=== PATIENT | male | born 1995 | race Two or more races ===

== ENCOUNTER 2024-11-04 07:48 | Inpatient (IN) | payer MEDICAID ==
[~2024-11-04] VITALS: Ht 180.3 cm; Wt 131.1 kg
[2024-11-04 07:55] VITALS: RESP 17
[2024-11-04 08:18] LABS: Urine Bacteria None Seen /hpf (None Seen)
[2024-11-04 08:41] LABS: Urine Blood Negative /uL (Negative); Urine Clarity Clear (Clear); Urine Color Yellow (Yellow); Urine Mucus FEW (None Seen); Urine Protein, UAD TRACE (Negative); Urine Specific Gravity 1.024 (1.001-1.035); Urine Urobilinogen Normal (Negative); Urine WBC 1 /hpf (0 - 3)
--- NOTE | 2024-11-04 08:56 | ED.PDOC ---
HPI (NEURO) HPI Comments 29 Y M, presents to the ED with CC of left sided weakness. Patient states that he woke up this morning to brush his teeth and when he went to spit the water would only come out of one side. Patient relays that he has had a left sided eye twitch since Sunday which progressed this morning to to left sided numbness with associated facial tingling. Patient denies tobacco usage, ETOH, or illicit drugs. Patient denies any headache, N/V/D, or body aches. Chief Complaint: Left Sided Weakness Time Seen by MD: 08:20 Primary Care Provider: NONE Reviewed Notes: Nurses Notes, Medications, Allergies Information Source: Patient Mode of Arrival: Ambulatory Severity: Moderate Headache Severity: None Timing: Days Duration: Since onset Prehospital treatment: None Weakness Location: (L) Sided, Facial Numbness Location: (L) Sided, Facial Symptoms: None History of: None Modifying factors: Nothing Associated Signs and Symptoms: None Past Medical History PAST MEDICAL HISTORY: Denies Surgical History: Denies all surgeries Family History Family History: Unknown Social History Smoker: Non-Smoker Alcohol: Denies ETOH Use Drugs: Denies Drug Use Lives In: Home Constitutional: denies: chills, diaphoresis, fatigue, fever, malaise, sweats, weakness, others EENTM: denies: blurred vision, double vision, ear bleeding, ear discharge, ear drainage, ear pain, ear ringing, eye pain, eye redness, hearing loss, mouth pain, mouth swelling, nasal discharge, nose bleeding, nose congestion, nose pain, photophobia, tearing, throat pain, throat swelling, voice changes, others Respiratory: denies: cough, hemoptysis, orthopnea, SOB at rest, shortness of breath, SOB with excertion, stridor, wheezing, others Cardiovascular: denies: chest pain, dizzy spells, diaphoresis, Dyspnea on exertion, edema, irregular heart beat, left arm pain, lightheadedness, palpitations, PND, syncope, others Gastrointestinal: denies: abdomen distended, abdominal pain, blood streaked bowels, constipated, diarrhea, dysphagia, difficulty swallowing, hematemesis, melena, nausea, poor appetite, poor fluid intake, rectal bleeding, rectal pain, vomiting, others Genitourinary: denies: burning, dysuria, flank pain, frequency, hematuria, incontinence, penile discharge, penile sore, pain, testicle pain, testicle swelling, urgency, others Neurological: reports: left sided numbness, left sided weakness, numbness, tingling, others (mild left sided facial droop); denies: dizziness, fainting, headache, paresthesia, pre-existing deficit, right sided numbness, right sided weakness, seizure, speech problems, tremors, weakness Musculoskeletal: denies: back pain, gout, joint pain, joint swelling, muscle pain, muscle stiffness, neck pain, others Integumetry: denies: bruises, change in color, change in hair/nails, dryness, laceration, lesions, lumps, rash, wounds, others Allergic/Immunocompromised: denies: Difficulty Healing, Frequent Infections, Hives, Itching, others Hematologic/Lymphatic: denies: anemia, blood clots, easy bleeding, easy bruising, swollen glands, others Endocrine: denies: excessive hunger, excessive sweating, excessive thirst, excessive urination, flushing, intolerance to cold, intolerance to heat, unexplained weight gain, unexplained weight loss, others Psychiatric: denies: anxiety, bipolar disorder, depression, hopeless, panic disorder, schizophrenia, sleepless, suicidal, others All Other Systems: Reviewed and Negative Physical Exam General Appearance: No Apparent Distress, Normal HEENT: Normal ENT Inspection, Pharynx Normal, TMs Normal Neck: Full Range of Motion, Non-Tender, Normal, Normal Inspection Respiratory: Chest Non-Tender, Lungs Clear, No Accessory Muscle Use, No Respiratory Distress, Normal Breath Sounds Cardiovascular: No Edema, No JVD, No Murmur, No Gallop, Normal Peripheral Pulses, Regular Rate/Rhythm Breast Exam: Deferred Gastrointestinal: No Organomegaly, Non Tender, No Pulsatile Mass, Normal Bowel Sounds, Soft Genitalia: Deferred Pelvic: Deferred Rectal: Deferred Extremities: No calf tenderness, Normal capillary refill, Normal inspection, Normal range of motion, Non-tender, No pedal edema Musculoskeletal : Apperance: Normal Neurologic: Alert, mental health worker II-XII nml as Tested, No Motor Deficits, Normal Affect, Normal Mood, No Sensory Deficits Cerebellar Function: Normal Reflexes: Normal Skin: Dry, Normal Color, Warm Lymphatic: No Adenopathy Was a procedure done? Was a procedure done?: No Differential Diagnosis (SZ) Seizure: Syncope CVA: Hooper's Palsy X-Ray, Labs, Meds, VS Vital Signs Date Time Temp Pulse Resp B/P (MAP) Pulse Ox O2 Delivery O2 Flow Rate FiO2 11/04/24 10:30 97.7 80 16 122/80 (94) 99 97.7 11/04/24 08:40 98.3 85 16 132/89 (103) 96 98.3 11/04/24 07:59 98.0 82 18 145/91 (109) 98 11/04/24 07:55 17 Room Air* 0 21 Lab Test 11/04/24 10:00 11/04/24 09:10 11/04/24 08:08 11/04/24 08:07 Range/Units Troponin I High Sensitivity < 3 L < 3 L </=54 ng/L White Blood Count 7.7 4.4-10.8 10^3/uL Red Blood Count 5.93 H 4.5-5.90 10^6/uL Hemoglobin 18.0 H 13.5-17.5 g/dL Hematocrit 52.3 41.0-53.0 % Mean Corpuscular Volume 88.2 80.0-100.0 fL Mean Corpuscular Hemoglobin 30.3 28.0-32.0 pg Mean Corpuscular Hemoglobin Concent 34.3 32.0-36.0 g/dL Red Cell Distribution Width 13.1 11.8-14.3 % Platelet Count 153 140-450 10^3/uL Mean Platelet Volume 10.7 6.9-10.8 fL Neutrophils (%) (Auto) 62.8 37.0-80.0 % Lymphocytes (%) (Auto) 24.5 10.0-50.0 % Monocytes (%) (Auto) 8.5 0.0-12.0 % Eosinophils (%) (Auto) 3.4 0.0-7.0 % Basophils (%) (Auto) 0.8 0.0-2.0 % Neutrophils # (Auto) 4.8 1.6-8.6 10 ^3/uL Lymphocytes # (Auto) 1.9 0.4-5.4 10 ^3/uL Monocytes # (Auto) 0.7 0-1.3 10 ^3/uL Eosinophils # (Auto) 0.3 0-0.8 10 ^3/uL Basophils # (Auto) 0.1 0-0.2 10 ^3/uL Nucleated Red Blood Cells 0.3 % Sodium Level 140 136-145 mmol/L Potassium Level 4.2 3.5-5.1 mmol/L Chloride Level 104 98-107 mmol/L Carbon Dioxide Level 30 20-31 mmol/L Anion Gap 6 5-15 Blood Urea Nitrogen 9 9-23 mg/dL Creatinine 0.84 0.700-1.30 mg/dL Glomerular Filtration Rate Calc 121 >90 mL/min BUN/Creatinine Ratio 10.7 10.0-20.0 Serum Glucose 226 H 74-106 mg/dL Calcium Level 9.9 8.7-10.4 mg/dL POC Glucose 212 H 70-106 mg/dl Urine Color Yellow Yellow Urine Clarity Clear Clear Urine pH 6.0 5.0-9.0 Urine Specific [place] 1.024 1.001-1.035 Urine Protein Trace H Negative Urine Ketones Negative Negative Urine Blood Negative Negative /uL Urine Nitrite Negative Negative Urine Bilirubin Negative Negative Urine Urobilinogen Normal Negative mg/dL Urine Leukocyte Esterase Negative Negative /uL Urine RBC <1 0 - 3 /hpf Urine WBC 1 0 - 3 /hpf Urine Squamous Epithelial Cells None seen <5 /hpf Urine Bacteria None seen None Seen /hpf Urine Mucus Few None Seen Urine Glucose 4+ H Normal mg/dL [place] [address] Ph: [phone] DIAGNOSTIC IMAGING Diagnostic Imaging Report : [id number] Signed PATIENT: LORETO SKYACCT: [id number] UNIT: [id number] : 1995 LOC: ER ROOM / BED: / AGE / SEX: 29 / M ADM STATUS: REG ER SERVICE 0853 ORDERING PHYSICIAN: DELVIS JOSEPH MD PROCEDURE(s): HWOCT - HEAD WITHOUT CONTRAST REASON: facial droop ORDER NUMBER(s): [id number], ACCESSION NUMBER(s): [id number] EXAM: CT HEAD WITHOUT CONTRAST INDICATION: Facial droop TECHNIQUE: CT of the head without intravenous contrast. Coronal and sagittal reformatted images are submitted. Radiation Dose : 1. Head: CT Dose: CTDI volume is 67.28 mGy. Dose-length product is 1325.6 mGy*cm The dose indicators for CT are the volume Computed Tomography (CT) Dose Index (CTDIvol) and the Dose Length Product (DLP), and are measured in units of mGy and mGy-cm, respectively. These indicators are not patient dose, but values generated from the CT scanner acquisition factors. The report includes radiation exposure data for exposures received during this examination. All CT scans at this medical facility are performed using dose modulation techniques as appropriate to a performed exam including the following: Automated exposure control was utilized; adjustment of the MA and/or KV according to patient size; and use of iterative reconstruction technique. COMPARISON: None FINDINGS: There is no evidence of acute intracranial hemorrhage, extra-axial collection, mass effect, midline shift, herniation or hydrocephalus. The ventricles, sulci and cisterns are age appropriate. The snow-white differentiation is intact. Mastoid air cells are clear. Opacification of the bilateral ethmoid air cells. Mucosal thickening in the bilateral maxillary sinuses. No depressed calvarial fracture. The surrounding soft tissues are unremarkable. IMPRESSION: 1. No acute intracranial abnormality. 2. Paranasal sinus disease. ATED BY: EMMA REGALADO MD DICTATED DATE/TIME: 11/04/24922 SIGNED BY: EMMA REGALADO MD SIGNED DATE/TIME: 11/04/24922 CC: [place] [address] Ph: [phone] DIAGNOSTIC IMAGING Diagnostic Imaging Report : [id number] Signed PATIENT: CARMELITA SKYT: [id number] UNIT: [id number] : 1995 LOC: ER ROOM / BED: / AGE / SEX: 29 / M ADM STATUS: REG ER SERVICE 2 ORDERING PHYSICIAN: DELVIS JOSEPH MD PROCEDURE(s): CXR2 - CHEST TWO VIEWS ROUTINE REASON: facial droop ORDER NUMBER(s): [id number], ACCESSION NUMBER(s): [id number] EXAM: XY CHEST TWO VIEWS ROUTINE CLINICAL HISTORY: facial droop COMPARISON: None TECHNIQUE: Frontal and lateral view of the chest was obtained FINDINGS: Lines and Tubes: None Lungs: No focal consolidation. Pleura: No effusion. No pneumothorax. Cardiomediastinal contours: Unremarkable Bones: No acute osseous abnormality. IMPRESSION: No acute cardiopulmonary disease. ATED BY: DONELL PERSAUD MD DICTATED DATE/TIME: 11/04/24925 SIGNED BY: DONELL PERSAUD MD SIGNED DATE/TIME: 11/04/24925 CC: Time of 1ST Reevaluation: 08:50 Reevaluation 1ST: Unchanged Patient Education/Counseling: Diagnosis, Treatment Family Education/Counseling: No Family Present Additional Information The following tests were ordered, and results were reviewed by me: BMP, CBC, TROPONIN X3, UA I reviewed and agreed with the following test results read by other providers: CXR, CT I discussed treatment and results with medical personnel and consultants. Departure 1 Departure Time of Disposition: 11:03 (Patient with mild left-sided facial droop. Patient has new onset hyperglycemia likely new onset diabetes. We will admit patient for further workup) Impression: Primary Impression: Hyperglycemia Additional Impression: Facial droop Disposition: ADMITTED INPATIENT Admit to: Med Surg Condition: Serious Critical Care Note Critical Care Time?: Yes Critical care comment: Facial droop Authorized and Performed by: Delvis Joseph MD Total critical care time: Approximately 33 minutes Due to a high probability of clinically significant, life threatening deterioration, the patient required my highest level of preparedness to intervene emergently and I personally spent this critical care time directly and personally managing the patient. This critical care time included obtaining a history; examining the patient; pulse oximetry; ordering and review of studies; arranging urgent treatment with development of a management plan; evaluation of patient's response to treatment; frequent reassessment; and, discussions with other providers. This critical care time was performed to assess and manage the high probability of imminent, life-threatening deterioration that could result in multi-organ failure. It was exclusive of separately billable procedures and treating other patients and teaching time. Please see my other sections and the rest of the note for further information on patient assessment and treatment. Stability Stability form required: No Heart Score Heart Score: Heart Score Response (Comments) Value History N/A 0 EKG N/A 0 Age N/A 0 Risk Factors N/A 0 Troponin N/A 0 Total 0 I personally scribed for DELVIS JOSEPH MD ([email or web address]) on 11/04/24 at 08:56. Electronically submitted by Khalida Marcelo ([email or web address]). I personally scribed for DELVIS JOSEPH MD ([facility] on 11/04/24 at 09:00. Electronically submitted by Khalida Marcelo ([email or web address]). I personally scribed for DELVIS JOSEPH MD ([email or web address]) on 11/04/24 at 09:41. Electronically submitted by Khalida Marcelo ([email or web address]). I personally scribed for DELVIS JOSEPH MD ([email or web address]) on 11/04/24 at 09:42. Electronically submitted by Khalida Marcelo ([email or web address]). I personally scribed for DELVIS JOSEPH MD ([email or web address]) on 11/04/24 at 09:43. Electronically submitted by Khalida Marcelo ([email or web address]). DELVIS JOSEPH MD Nov 04, 2024 08:56
[2024-11-04 09:18] LABS: Basophils # (auto) 0.1 10 ^3/uL (0-0.2); Basophils % (auto) 0.8 % (0.0-2.0); Eosinophils # (auto) 0.3 10 ^3/uL (0-0.8); Eosinophils % (auto) 3.4 % (0.0-7.0); Hematocrit 52.3 % (41.0-53.0); Lymphocytes # (auto) 1.9 10 ^3/uL (0.4-5.4); Lymphocytes % (auto) 24.5 % (10.0-50.0); Mean Corpuscular Hemoglobin 30.3 pg (28.0-32.0); Mean Corpuscular Hgb Conc. 34.3 g/dL (32.0-36.0); Mean Corpuscular Volume 88.2 fL (80.0-100.0); Monocytes # (auto) 0.7 10 ^3/uL (0-1.3); Monocytes % (auto) 8.5 % (0.0-12.0); Neutrophils # (auto) 4.8 10 ^3/uL (1.6-8.6); Neutrophils % (auto) 62.8 % (37.0-80.0); Nucleated Red Blood Cells % 0.3 %; Platelet Count (auto) 153 10^3/uL (140-450); Red Blood Cells 5.93 10^6/uL (4.5-5.90); Red Cell Distribution Width 13.1 % (11.8-14.3); White Blood Cell 7.7 10^3/uL (4.4-10.8)
[2024-11-04 09:25] LABS: Chloride 104 mmol/L (98-107); Potassium 4.2 mmol/L (3.5-5.1); Sodium 140 mmol/L (136-145)
--- NOTE | 2024-11-04 09:25 | DVH ---
EXAM: CT HEAD WITHOUT CONTRAST INDICATION: Facial droop TECHNIQUE: CT of the head without intravenous contrast. Coronal and sagittal reformatted images are submitted. Radiation Dose : 1. Head: CT Dose: CTDI volume is 67.28 mGy. Dose-length product is 1325.6 mGy*cm The dose indicators for CT are the volume Computed Tomography (CT) Dose Index (CTDIvol) and the Dose Length Product (DLP), and are measured in units of mGy and mGy-cm, respectively. These indicators are not patient dose, but values generated from the CT scanner acquisition factors. The report includes radiation exposure data for exposures received during this examination. All CT scans at this medical facility are performed using dose modulation techniques as appropriate to a performed exam including the following: Automated exposure control was utilized; adjustment of the MA and/or KV according to patient size; and use of iterative reconstruction technique. COMPARISON: None FINDINGS: There is no evidence of acute intracranial hemorrhage, extra-axial collection, mass effect, midline s hift, herniation or hydrocephalus. The ventricles, sulci and cisterns are age appropriate. The snow-white differentiation is intact. Mastoid air cells are clear. Opacification of the bilateral ethmoid air cells. Mucosal thickening in the bilateral maxillary sinuses. No depressed calvarial fracture. The surrounding soft tissues are unremarkable. IMPRESSION: 1. No acute intracranial abnormality. 2. Paranasal sinus disease.
[2024-11-04 09:26] LABS: Anion Gap 6 (5-15); Calcium 9.9 mg/dL (8.7-10.4); Carbon Dioxide 30 mmol/L (20-31)
--- NOTE | 2024-11-04 09:27 | DVH ---
EXAM: XY CHEST TWO VIEWS ROUTINE CLINICAL HISTORY: facial droop COMPARISON: None TECHNIQUE: Frontal and lateral view of the chest was obtained FINDINGS: Lines and Tubes: None Lungs: No focal consolidation. Pleura: No effusion. No pneumothorax. Cardiomediastinal contours: Unremarkable Bones: No acute osseous abnormality. IMPRESSION: No acute cardiopulmonary disease.
[2024-11-04 09:31] LABS: BUN/Creatinine Ratio 10.7 (10.0-20.0); Blood Urea Nitrogen 9 mg/dL (9-23)
[2024-11-04 09:32] LABS: Glucose 226 mg/dL (74-106)
[2024-11-04] MEDS ORDERED: DOCUSATE SOD 100 MG CAP PO PRN ×2 (12:30→12:45)
[2024-11-04] MEDS ORDERED: ONDANSETRON HCL 4 MG/2 ML VIAL IV PRN ×2 (12:30→12:45)
[2024-11-04] MEDS ORDERED: NITROGLYCERIN 0.4 MG SL TAB SL PRN ×2 (12:30→12:45)
[2024-11-04] MEDS ORDERED: HYDROcodone-ACET 5/325MG TAB PO PRN ×2 (12:30→12:45)
[2024-11-04] MEDS ORDERED: MORPHINE SULFATE INJ 2 MG/ml SYRG IV PRN ×2 (12:30→12:45)
[2024-11-04] MEDS ORDERED: ACETAMINOPHEN 325 MG TAB PO PRN (12:30)
--- NOTE | 2024-11-04 12:47 | DVHHP2 ---
History of Present Illness Reason for Visit: left facial droop History of Present Illness Aditya Burgess is a 29-year-old male with no significant past medical history who came in with complaints of left sided facial numbness. Patient states that on Sunday he noticed the left side of his face twitching and tingling. Then this morning while he was brushing his teeth the left side of his face went numb, he was drooling, and his left hand went numb. On assessment the left side of his face is tingling, his left hand is still numb and he has a left sided facial droop. Past Surgical History: None Family History: None Smoke: No ALCOHOL: rare Drugs: None Lives: with Family Domestic Violence: Neg Review of Systems Constitutional: No: Fever, Chills, Sweats, Weakness, Malaise, Other Eyes: No: Pain, Vision change, Conjunctivae inflammation, Eyelid inflammation, Other, Redness ENT: No: Ear pain, Ear discharge, Nose pain, Nose discharge, Nose congestion, Mouth pain, Mouth swelling, Throat pain, Throat swelling, Other Respiratory: No: Cough, Dry, Shortness of breath, SOB with excertion, Wheezing, Hemoptysis, Pleuritic Pain, Sputum, Wheezing, Other Cardiovascular: No: Chest Pain, Palpitations, Orthopnea, Paroxysmal Noc. Dyspnea, Edema, Lt Headedness, Other Gastrointestinal: No: Nausea, Vomiting, Abdominal Pain, Diarrhea, Constipation, Melena, Hematochezia, Other Genitourinary: No Dysuria, No Frequency, No Incontinence, No Hematuria, No Retention, No Other Musculoskeletal: No: other, neck pain, shoulder pain, arm pain, back pain, hand pain, leg pain, foot pain Skin: No: Rash, Lesions, Jaundice, Bruising, Other Neurological: Numbness (left hand and left face), Other (left facial droop); No: Weakness, Incoordination, Change in speech, Confusion, Seizures Allergies: Coded Allergies: NO KNOWN ALLERGIES (Unverified , 11/04/24) Exam Vital Signs Vital Signs Date Time Temp Pulse Resp B/P (MAP) Pulse Ox O2 Delivery O2 Flow Rate FiO2 11/04/24 10:30 97.7 80 16 122/80 (94) 99 97.7 11/04/24 07:55 Room Air* 0 21 General Appearance: Alert, Oriented X3, Cooperative, moderate distress HEENT: Atraumatic, PERRLA Respiratory: Clear to auscultation, Normal air movement Cardiovascular: Regular rate, Normal S1, Normal S2, No murmurs Abdominal: Normal bowel sounds, Soft, No tenderness Extremities: No clubbing, No cyanosis, No edema, Normal pulses Skin: No rashes, No breakdown Neuro: Normal gait, Normal speech, Strength at 5/5 X4 ext, Other (left hand numbness, left facial droop, left face numbness/tingling) Psych/Mental Status: Mental status NL, Mood NL Labs/Xrays Labs Test 11/04/24 10:00 11/04/24 09:10 11/04/24 08:08 11/04/24 08:07 Range/Units Troponin I High Sensitivity < 3 L </=54 ng/L White Blood Count 7.7 4.4-10.8 10^3/uL Red Blood Count 5.93 H 4.5-5.90 10^6/uL Hemoglobin 18.0 H 13.5-17.5 g/dL Hematocrit 52.3 41.0-53.0 % Mean Corpuscular Volume 88.2 80.0-100.0 fL Mean Corpuscular Hemoglobin 30.3 28.0-32.0 pg Mean Corpuscular Hemoglobin Concent 34.3 32.0-36.0 g/dL Red Cell Distribution Width 13.1 11.8-14.3 % Platelet Count 153 140-450 10^3/uL Mean Platelet Volume 10.7 6.9-10.8 fL Neutrophils (%) (Auto) 62.8 37.0-80.0 % Lymphocytes (%) (Auto) 24.5 10.0-50.0 % Monocytes (%) (Auto) 8.5 0.0-12.0 % Eosinophils (%) (Auto) 3.4 0.0-7.0 % Basophils (%) (Auto) 0.8 0.0-2.0 % Neutrophils # (Auto) 4.8 1.6-8.6 10 ^3/uL Lymphocytes # (Auto) 1.9 0.4-5.4 10 ^3/uL Monocytes # (Auto) 0.7 0-1.3 10 ^3/uL Eosinophils # (Auto) 0.3 0-0.8 10 ^3/uL Basophils # (Auto) 0.1 0-0.2 10 ^3/uL Nucleated Red Blood Cells 0.3 % Sodium Level 140 136-145 mmol/L Potassium Level 4.2 3.5-5.1 mmol/L Chloride Level 104 98-107 mmol/L Carbon Dioxide Level 30 20-31 mmol/L Anion Gap 6 5-15 Blood Urea Nitrogen 9 9-23 mg/dL Creatinine 0.84 0.700-1.30 mg/dL Glomerular Filtration Rate Calc 121 >90 mL/min BUN/Creatinine Ratio 10.7 10.0-20.0 Serum Glucose 226 H 74-106 mg/dL Calcium Level 9.9 8.7-10.4 mg/dL POC Glucose 212 H 70-106 mg/dl Urine Color Yellow Yellow Urine Clarity Clear Clear Urine pH 6.0 5.0-9.0 Urine Specific [place] 1.024 1.001-1.035 Urine Protein Trace H Negative Urine Ketones Negative Negative Urine Blood Negative Negative /uL Urine Nitrite Negative Negative Urine Bilirubin Negative Negative Urine Urobilinogen Normal Negative mg/dL Urine Leukocyte Esterase Negative Negative /uL Urine RBC <1 0 - 3 /hpf Urine WBC 1 0 - 3 /hpf Urine Squamous Epithelial Cells None seen <5 /hpf Urine Bacteria None seen None Seen /hpf Urine Mucus Few None Seen Urine Glucose 4+ H Normal mg/dL EXAM: CT HEAD WITHOUT CONTRAST FINDINGS: There is no evidence of acute intracranial hemorrhage, extra-axial collection, m ass effect, midline shift, herniation or hydrocephalus. The ventricles, sulci and cisterns are age appropriate. The snow-white differentiation is intact. Mastoid air cells are clear. Opacification of the bilateral ethmoid air cells. Mucosal thickening in the bilateral maxillary sinuses. No depressed calvarial fracture. The surrounding soft tissues are unremarkable. IMPRESSION: 1. No acute intracranial abnormality. 2. Paranasal sinus disease. EXAM: XY CHEST TWO VIEWS ROUTINE FINDINGS: Lines and Tubes: None Lungs: No focal consolidation. Pleura: No effusion. No pneumothorax. Cardiomediastinal contours: Unremarkable Bones: No acute osseous abnormality. IMPRESSION: No acute cardiopulmonary disease. 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, Plan: Admit to Tele, Neurology consult, MRI of brain, EKG - showed SR, Consider ECHO to R/O thrombus, A1c, Plan discussed with: Patient My Orders Orders - ADRIÁN HENDERSONP Procedure Category Date Status Time Admit ADMIT 11/04/24 Transmitted 12:23 Code Status CODE 11/04/24 Transmitted 12:23 Sodium Chloride Lock PHA 11/04/24 Transmitted (Saline Lock Ns) 14:00 Hydrocodone-Acet PHA 11/04/24 Transmitted 5/325mg Tab ([place] 12:30 Ondansetron Hcl PHA 11/04/24 Transmitted (Zofran) 12:30 Docusate Sodium PHA 11/04/24 Transmitted Capsule (Colace 12:30 Complete Blood Count LAB 11/05/24 Verified 04:00 Comprehensive LAB 11/05/24 Verified Metabolic Panel 04:00 Condition: Serious ADELA 11/04/24 Transmitted 12:23 Acetaminophen Tablet [facility] 11/04/24 Transmitted (Tylenol Tablet) 12:30 Nitroglycerin PHA 11/04/24 Transmitted Sublingual (Ntrostat 12:30 Morphine Sulfate PHA 11/04/24 Transmitted Injection 12:30 Stat Ekg For Chest ADELA 11/04/24 Transmitted Pain 12:23 Notify Md Of Changes [facility] 11/04/24 Transmitted From Base 12:23 Teradata Architect For ADELA 11/04/24 Transmitted 24 Hours 12:23 Emergency Dysrhythmia [facility] 11/04/24 Transmitted Protocol 12:23 Rhythm Strips Once [facility] 11/04/24 Transmitted Every Shift 12:23 Oxygen By Nasal RT 11/04/24 Transmitted Cannula 12:23 Brain Head Wo Contrast MRI 11/04/24 Logged 12:[address] *[address] Dupont CONS 11/04/24 Transmitted Patel 12:23 Date of Service: Nov 04, 2024 Billing Provider: ADRIÁN HENDERSON Common Visit Codes: [id number] INP/OBS CARE (MOD) ADRIÁN HENDERSONP Nov 04, 2024 12:47
[2024-11-04] MEDS ORDERED: SODIUM CHLOR 0.9% PF (SALINE LOCK) 10ML VIAL/SYR IV SCH (14:00)
--- NOTE | 2024-11-04 14:41 | DVH ---
PROCEDURE: MRI BRAIN HEAD WO CONTRAST INDICATION: stroke EXAM DATE: 11/04/2024 01:52 PM COMPARISON: CT HEAD WITHOUT CONTRAST on DOS: 11/04/24 TECHNIQUE: MRI of the brain without intravenous contrast. FINDINGS: Diffusion weighted images of the brain demonstrate no evidence of acute infarction. There is no evidence of acute intracranial hemorrhage, extra-axial collection, mass effect, midline s hift, herniation or hydrocephalus. The ventricles, sulci and cisterns appear age appropriate. The signal intensities of the brain parenchyma are within normal limits. There are no signal abnormalities on the susceptibility weighted sequences. The major vascular flow voids are present. The visualized paranasal sinuses and mastoid air cells are clear. The surrounding soft tissues and o sseous structures are unremarkable. IMPRESSION: 1. No evidence of acute infarction, intracranial hemorrhage, mass effect or hydrocephalus. HS:Y
[2024-11-04 15:56] VITALS: PULSE 90; RESP 18
[2024-11-04 15:59] VITALS: BP 160/110; PULSE 90; RESP 20; TEMP 97.8; O2SAT 98
[2024-11-04] MEDS: SODIUM CHLOR 0.9% PF (SALINE LOCK) 10ML VIAL/SYR IV SCH (16:20)
[2024-11-04 16:45] VITALS: BP 144/88; PULSE 86
--- NOTE | 2024-11-04 18:17 | DVHINCON2 ---
Date of service: Nov 04, [address] Lopez Reason for Consultation Possible stroke History of Present Illness Mr. Burgess is a 29 years old left-handed gentleman with a history of obesity, the patient came to the hospital with a chief company of left facial numbness. At this time, he is alert and fully oriented, he provided the following history This morning he woke up with numbness in the left face and hand, when he brushed the teeth, water was leaking from the right (not left) mouth corner. He denies paresthesia in the other part of his body, he denies weakness in the extremities No change in hearing, taste He was never had similar problems previously He snores, his sleep is refreshing, he denies excessive daytime sleepiness or fatigue, but his has complained about breathing pauses during sleep on him Urinalysis, 11/04/2024: Unremarkable WBC/HB/PLT/MCV, 11/04/2024: 7.7/18/153/88.2 BNP, 11/04/2024: Okay HGB A1c, 11/04/2024:10.2 CT head, 11/04/2024: 1. No acute intracranial abnormality. 2. Paranasal sinus disease. MRI brain, 11/04/2024: No evidence of acute infarction, intracranial hemorrhage, mass effect or hydrocephalus Past Medical History Obesity Past Surgical History No surgeries Family History: Diabetes mellitus G8 FATHER Hypertension G8 MOTHER Family History hypertension, diabetes Social History He is not a tobacco smoker, he denies a history of alcohol or recreational substance abuse Allergies: Coded Allergies: NO KNOWN ALLERGIES (Unverified , 11/04/24) Home Meds No Active Prescriptions or Reported Meds Current Medications Current Medications Medications (Trade) Dose Ordered Sig/Nicky Route PRN Reason Start Time Stop Time Status Last Admin Sodium Chloride (Saline Lock Ns) 10 ml Q8HR IV 11/04/24 14:00 11/04/24 12:37 DC Acetaminophen/ Hydrocodone Bitart ([place] 5/325MG Tab) 1 tab Q4HP PRN PO MODERATE PAIN (4-6 PAIN SCALE) 11/04/24 12:30 11/04/24 12:37 DC Ondansetron HCl (Zofran) 4 mg Q4HP PRN IV NAUSEA / VOMITING 11/04/24 12:30 11/04/24 12:37 DC Docusate Sodium (Colace Capsule) 100 mg BIDPRN PRN PO FOR CONSTIPATION 11/04/24 12:30 11/04/24 12:37 DC Acetaminophen (Tylenol Tablet) 650 mg Q6HP PRN PO PAIN SCALE 1-3 OR TEMP>100.4 11/04/24 12:30 11/04/24 12:37 DC Nitroglycerin (Ntrostat Sublingual) 0.4 mg Q5MINP PRN SL FOR CHEST PAIN 11/04/24 12:30 11/04/24 12:37 DC Morphine Sulfate 2 mg Q30M PRN IV FOR CHEST PAIN 11/04/24 12:30 11/04/24 12:37 DC Sodium Chloride (Saline Lock Ns) 10 ml Q8HR IV 11/04/24 14:00 11/04/24 16:20 Ondansetron HCl (Zofran) 4 mg Q4HP PRN IV NAUSEA / VOMITING 11/04/24 12:45 Morphine Sulfate 2 mg Q30M PRN IV FOR CHEST PAIN 11/04/24 12:45 Acetaminophen/ Hydrocodone Bitart ([place] 5/325MG Tab) 1 tab Q4HP PRN PO MODERATE PAIN (4-6 PAIN SCALE) 11/04/24 12:45 Docusate Sodium (Colace Capsule) 100 mg BIDPRN PRN PO FOR CONSTIPATION 11/04/24 12:45 Acetaminophen (Tylenol Tablet) 650 mg Q6HP PRN PO PAIN SCALE 1-3 OR TEMP>100.4 11/04/24 12:45 Nitroglycerin (Ntrostat Sublingual) 0.4 mg Q5MINP PRN SL FOR CHEST PAIN 11/04/24 12:45 Aspirin 81 mg DAILY PO 11/05/24 10:00 Review of Systems As above, the other systems are negative Vital Signs Vital Signs Date Time Temp Pulse Resp B/P (MAP) Pulse Ox O2 Delivery O2 Flow Rate FiO2 11/04/24 16:45 86 144/88 (106) 11/04/24 15:59 97.8 20 98 97.8 11/04/24 15:56 Room Air* 0 21 Physical Exam GENERAL EXAM: General: the patient is well developed and nourished. No acute distress. HEENT: Normocephalic, neck is supple, no carotid bruits. No mass. RESPIRATORY: Normal respiratory effort with symmetrical lung expansion. Lungs clear to auscultation. CARDIOVASCULAR: Regular rate and rhythm with no murmurs. S1, S2. ABDOMEN: Soft, nontender, normal bowel sound NEUROLOGICAL: MENTAL STATUS: Awake and alert. Oriented to person, place, time and general circumstances. Able to give personal history. SPEECH, LANGUAGE, HIGHER CORTICAL FUNCTION: no aphasia or dysathria. CRANIAL NERVES: #2: Intact visual campa to confrontation. The optic discs were sharp. Retinal background was uniformly pink in appearance. There was no hemorrhages or exu dates. #3,4,6: Pupils are equal, round and reactive. EOMs full and conjugate. #5: Facial sensation intact in all three divisions bilaterally. Mandibular strength intact. Taste is normal in the tongue #7: Mild left facial weakness of lower motor neuron pattern. #8: Hearing grossly normal to voice. #9,10: Uvula and soft palate rise in the midline. Swallow and voice are normal. #11: Trapezius and sternomastoid strength intact bilaterally. #12: Tongue midline. No fasciculations or atrophy. SENSATION: Sensation to touch and pinprick is normal. MOTOR: Normal tone in the upper and lower extremity. Normal muscle bulk. No fasciculations. No abnormal movements or posturing. Muscle strength of the major groups in the upper extremities is 5/5. Muscle strength of the major groups in the lower extremities is 5/5. REFLEXES: Deep tendon reflexes normal and symmetrical. No pathological reflexes. CEREBELLAR/COORDINATION: Finger to nose and heel to gómez are normal bilaterally. GAIT/STATION: deferred. Labs/Diagnostic Data Labs Test 11/04/24 10:00 11/04/24 09:10 11/04/24 08:08 11/04/24 08:07 Range/Units Troponin I High Sensitivity < 3 L </=54 ng/L White Blood Count 7.7 4.4-10.8 10^3/uL Red Blood Count 5.93 H 4.5-5.90 10^6/uL Hemoglobin 18.0 H 13.5-17.5 g/dL Hematocrit 52.3 41.0-53.0 % Mean Corpuscular Volume 88.2 80.0-100.0 fL Mean Corpuscular Hemoglobin 30.3 28.0-32.0 pg Mean Corpuscular Hemoglobin Concent 34.3 32.0-36.0 g/dL Red Cell Distribution Width 13.1 11.8-14.3 % Platelet Count 153 140-450 10^3/uL Mean Platelet Volume 10.7 6.9-10.8 fL Neutrophils (%) (Auto) 62.8 37.0-80.0 % Lymphocytes (%) (Auto) 24.5 10.0-50.0 % Monocytes (%) (Auto) 8.5 0.0-12.0 % Eosinophils (%) (Auto) 3.4 0.0-7.0 % Basophils (%) (Auto) 0.8 0.0-2.0 % Neutrophils # (Auto) 4.8 1.6-8.6 10 ^3/uL Lymphocytes # (Auto) 1.9 0.4-5.4 10 ^3/uL Monocytes # (Auto) 0.7 0-1.3 10 ^3/uL Eosinophils # (Auto) 0.3 0-0.8 10 ^3/uL Basophils # (Auto) 0.1 0-0.2 10 ^3/uL Nucleated Red Blood Cells 0.3 % Sodium Level 140 136-145 mmol/L Potassium Level 4.2 3.5-5.1 mmol/L Chloride Level 104 98-107 mmol/L Carbon Dioxide Level 30 20-31 mmol/L Anion Gap 6 5-15 Blood Urea Nitrogen 9 9-23 mg/dL Creatinine 0.84 0.700-1.30 mg/dL Glomerular Filtration Rate Calc 121 >90 mL/min BUN/Creatinine Ratio 10.7 10.0-20.0 Serum Glucose 226 H 74-106 mg/dL Hemoglobin A1c 10.2 H <5.7 % A1C Calcium Level 9.9 8.7-10.4 mg/dL POC Glucose 212 H 70-106 mg/dl Urine Color Yellow Yellow Urine Clarity Clear Clear Urine pH 6.0 5.0-9.0 Urine Specific [place] 1.024 1.001-1.035 Urine Protein Trace H Negative Urine Ketones Negative Negative Urine Blood Negative Negative /uL Urine Nitrite Negative Negative Urine Bilirubin Negative Negative Urine Urobilinogen Normal Negative mg/dL Urine Leukocyte Esterase Negative Negative /uL Urine RBC <1 0 - 3 /hpf Urine WBC 1 0 - 3 /hpf Urine Squamous Epithelial Cells None seen <5 /hpf Urine Bacteria None seen None Seen /hpf Urine Mucus Few None Seen Urine Glucose 4+ H Normal mg/dL Assessment Left facial weakness 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
[2024-11-04 19:30] VITALS: BP 144/88; PULSE 86; RESP 20; TEMP 97.8; O2SAT 98
[2024-11-04 20:05] VITALS: PULSE 86; RESP 18; O2SAT 98
[2024-11-04] MEDS: FAMOTIDINE 20 MG TAB PO SCH (21:56)
[2024-11-04] MEDS: predniSONE 20 MG TAB PO SCH (21:56)
[2024-11-04] MEDS: ACETAMINOPHEN 325 MG TAB PO PRN (22:40)
--- NOTE | 2024-11-05 02:05 | ECG ---
[facility] Test Date: 2024-11-04 Test Time: 13:06:46 Pat Name: LORETO SKY Department: ER Room: [address] [place] [address] Gender: M Sorter/Assay Tech: GABINO : 1995 Requested By: DELVIS JOSEPH Order Number: [id number] Reading MD: Lenin Robert Measurements Intervals [place] Rate: 81 P: 35 PA: 144 QRS: 104 QRSD: 98 T: 9 QT: 369 QTc: 429 Interpretive Statements Sinus rhythm Borderline right axis deviation Low voltage, precordial leads Electronically Signed On 11-07-2024 10:23:48 PST by Lenin Robert Please click the below link to view image of tracing.
[2024-11-05 04:18] LABS: Basophils # (auto) 0 10 ^3/uL (0-0.2); Eosinophils # (auto) 0 10 ^3/uL (0-0.8); Lymphocytes # (auto) 1.5 10 ^3/uL (0.4-5.4); Lymphocytes % (auto) 18.3 % (10.0-50.0); Monocytes # (auto) 0.2 10 ^3/uL (0-1.3)
[2024-11-05 04:20] LABS: Basophils % (auto) 0.2 % (0.0-2.0); Eosinophils % (auto) 0.3 % (0.0-7.0); Hematocrit 53.9 % (41.0-53.0); Hemoglobin 18.9 g/dL (13.5-17.5); Mean Corpuscular Hemoglobin 30.8 pg (28.0-32.0); Monocytes % (auto) 2.5 % (0.0-12.0); Neutrophils # (auto) 6.4 10 ^3/uL (1.6-8.6); Neutrophils % (auto) 78.7 % (37.0-80.0); Nucleated Red Blood Cells % 0.1 %; Platelet Count (auto) 178 10^3/uL (140-450); Red Blood Cells 6.13 10^6/uL (4.5-5.90); Red Cell Distribution Width 13.2 % (11.8-14.3); White Blood Cell 8.1 10^3/uL (4.4-10.8)
[2024-11-05 04:31] LABS: Albumin 4.7 g/dL (3.2-4.8); Alkaline Phosphatase 83 U/L (46-116); Anion Gap 6 (5-15); Aspartate Aminotransferase 32 U/L (13-40); BUN/Creatinine Ratio 13.2 (10.0-20.0); Blood Urea Nitrogen 12 mg/dL (9-23); Carbon Dioxide 27 mmol/L (20-31); Chloride 102 mmol/L (98-107); Potassium 4.6 mmol/L (3.5-5.1); Total Protein 7.9 g/dL (5.7-8.2)
[2024-11-05 04:47] LABS: Alanine Aminotransferase 87 U/L (7-40); Calcium 10.5 mg/dL (8.7-10.4); Glucose 302 mg/dL (74-106); Sodium 135 mmol/L (136-145)
--- NOTE | 2024-11-05 08:49 | DVHPN2 ---
Progress Note - Dictate Date Seen: Nov 05, 2024 Medical Necessity Reason Pt with a Central, PICC or Fol: No Subjective Mr. Burgess is a 29 years old left-handed gentleman with a history of obesity, the patient came to the hospital with a chief company of left facial numbness. I have seen and examined the patient, I have talked to him and his nurse, he was doing fine, the left patient was weakness is better Urinalysis, 11/04/2024: Unremarkable WBC/HB/PLT/MCV, 11/04/2024: 7.7//153/88.2 BNP, 11/04/2024: Okay HGB A1c, 11/04/2024:10.2 CT head, 11/04/2024: 1. No acute intracranial abnormality. 2. Paranasal sinus disease. MRI brain, 11/04/2024: No evidence of acute infarction, intracranial hemorrhage, mass effect or hydrocephalus vital signs Vital Sign Date Time Temp Pulse Resp B/P (MAP) Pulse Ox O2 Delivery O2 Flow Rate FiO2 11/05/24 01:03 97.9 71 18 115/67 (83) 96 97.9 11/04/24 20:05 Room Air* 0 21 medications Current Medications Medications Dose Ordered Sig/Nicky Route Start Time Stop Time Status Last Admin Dose Admin Sodium Chloride 10 ml Q8HR IV 11/04/24 14:00 11/05/24 06:00 10 ML Ondansetron HCl 4 mg Q4HP PRN IV 11/04/24 12:45 Docusate Sodium 100 mg BIDPRN PRN PO 11/04/24 12:45 Acetaminophen 650 mg Q6HP PRN PO 11/04/24 12:45 11/04/24 22:40 650 MG Nitroglycerin 0.4 mg Q5MINP PRN SL 11/04/24 12:45 Aspirin 81 mg DAILY PO 11/05/24 10:00 Famotidine 20 mg Q12HR PO 11/04/24 22:00 11/04/24 21:56 20 MG Prednisone 60 mg DAILY PO 11/04/24 20:00 11/13/24 23:00 11/04/24 21:56 60 MG objective General: the patient is well developed and nourished. No acute distress. MENTAL STATUS: Awake and alert. Oriented to person, place, time and general circumstances. Able to give personal history. SPEECH, LANGUAGE, HIGHER CORTICAL FUNCTION: no aphasia or dysathria. CRANIAL NERVES: Pupils are equal, round and reactive. EOMs full and conjugate. Facial sensation intact in all three divisions bilaterally. Mandibular strength intact. Mild left facial weakness of lower motor neuron pattern. He can close the left eye completely, but blinking is weak SENSATION: Sensation to touch and pinprick is normal. MOTOR: Normal tone in the upper and lower extremity. Normal muscle bulk. No fasciculations. No abnormal movements or posturing. Muscle strength of the major groups in the extremities is 5/5. REFLEXES: Deep tendon reflexes normal and symmetrical. No pathological reflexes. CEREBELLAR/COORDINATION: Finger to nose and heel to gómez are normal bilaterally. 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 Although this document has been carefully reviewed, there may still be some phonetic and typographical errors. These areas are purely typographical due to imperfections of the software programs, and do not reflect any compromise in the patient's medical care. Prognosis poor Plan discussed with: Patient, Other Total Time (mins): 35 JOE HERNÁNDEZ MD Nov 05, 2024 08:49
[2024-11-05] MEDS ORDERED: ASPirin 81 mg TAB PO SCH (10:00)
[2024-11-05 15:01] LABS: Amphetamine Screen, Urine Neg (NEGATIVE); Barbiturate Scree,Urine Neg (NEGATIVE); Benzodiazephine Screen, Urine Neg (NEGATIVE); Cannabinoid Screen, Urine Neg (NEGATIVE); Cocaine Screen, Urine Neg (NEGATIVE); Opiate Scree,Urine Neg (NEGATIVE); Phencyclidine Screen, Urine Neg (NEGATIVE)
[2024-11-05] MEDS ORDERED: VALA1TAB PO (15:36)
[2024-11-05] MEDS ORDERED: PRED20TA2 PO (15:40)
[2024-11-05] MEDS ORDERED: METH4PAK PO (15:41)
[2024-11-05] MEDS ORDERED: PANT40TA2 PO (15:43)
[2024-11-05 16:35] VITALS: BP 116/60; PULSE 96; RESP 16; TEMP 98; O2SAT 96
--- NOTE | 2024-11-05 18:24 | DVHDSRES ---
Discharge Summary Date of Admission Resident Creating Document: SONY FINK RESIDENT Nov 04, 2024 at 12:23 Date of Discharge: Nov 05, 2024 Admitting Diagnosis Left facial tingling Labs/Diagnostic Data: Laboratory Results Test 11/05/24 13:26 11/05/24 03:44 11/04/24 10:00 11/04/24 09:10 Urine Opiates Screen Neg (NEGATIVE) Urine Fentanyl Screen Neg (NEGATIVE) Urine Barbiturates Screen Neg (NEGATIVE) Urine Phencyclidine Screen Neg (NEGATIVE) Urine Amphetamines Screen Neg (NEGATIVE) Urine Benzodiazepines Screen Neg (NEGATIVE) Urine Cocaine Screen Neg (NEGATIVE) Urine Cannabinoids Screen Neg (NEGATIVE) White Blood Count 8.1 10^3/uL (4.4-10.8) Red Blood Count 6.13 10^6/uL (4.5-5.90) Hemoglobin 18.9 g/dL (13.5-17.5) Hematocrit 53.9 % (41.0-53.0) Mean Corpuscular Volume 88.0 fL (80.0-100.0) Mean Corpuscular Hemoglobin 30.8 pg (28.0-32.0) Mean Corpuscular Hemoglobin Concent 35.0 g/dL (32.0-36.0) Red Cell Distribution Width 13.2 % (11.8-14.3) Platelet Count 178 10^3/uL (140-450) Mean Platelet Volume 11.4 fL (6.9-10.8) Neutrophils (%) (Auto) 78.7 % (37.0-80.0) Lymphocytes (%) (Auto) 18.3 % (10.0-50.0) Monocytes (%) (Auto) 2.5 % (0.0-12.0) Eosinophils (%) (Auto) 0.3 % (0.0-7.0) Basophils (%) (Auto) 0.2 % (0.0-2.0) Neutrophils # (Auto) 6.4 10 ^3/uL (1.6-8.6) Lymphocytes # (Auto) 1.5 10 ^3/uL (0.4-5.4) Monocytes # (Auto) 0.2 10 ^3/uL (0-1.3) Eosinophils # (Auto) 0 10 ^3/uL (0-0.8) Basophils # (Auto) 0 10 ^3/uL (0-0.2) Nucleated Red Blood Cells 0.1 % Sodium Level 135 mmol/L (136-145) Potassium Level 4.6 mmol/L (3.5-5.1) Chloride Level 102 mmol/L (98-107) Carbon Dioxide Level 27 mmol/L (20-31) Anion Gap 6 (5-15) Blood Urea Nitrogen 12 mg/dL (9-23) Creatinine 0.91 mg/dL (0.700-1.30) Glomerular Filtration Rate Calc 117 mL/min (>90) BUN/Creatinine Ratio 13.2 (10.0-20.0) Serum Glucose 302 mg/dL (74-106) Calcium Level 10.5 mg/dL (8.7-10.4) Total Bilirubin 1.0 mg/dL (0.2-1.0) Aspartate Amino Transferase (AST) 32 U/L (13-40) Alanine Aminotransferase (ALT) 87 U/L (7-40) Alkaline Phosphatase 83 U/L (46-116) Total Protein 7.9 g/dL (5.7-8.2) Albumin 4.7 g/dL (3.2-4.8) Troponin I High Sensitivity < 3 ng/L (</=54) Hemoglobin A1c 10.2 % A1C (<5.7) Test 11/04/24 08:08 11/04/24 08:07 POC Glucose 212 mg/dl (70-106) Urine Color Yellow (Yellow) Urine Clarity Clear (Clear) Urine pH 6.0 (5.0-9.0) Urine Specific [place] 1.024 (1.001-1.035) Urine Protein Trace (Negative) Urine Ketones Negative (Negative) Urine Blood Negative /uL (Negative) Urine Nitrite Negative (Negative) Urine Bilirubin Negative (Negative) Urine Urobilinogen Normal mg/dL (Negative) Urine Leukocyte Esterase Negative /uL (Negative) Urine RBC <1 /hpf (0 - 3) Urine WBC 1 /hpf (0 - 3) Urine Squamous Epithelial Cells None seen /hpf (<5) Urine Bacteria None seen /hpf (None Seen) Urine Mucus Few (None Seen) Urine Glucose 4+ mg/dL (Normal) Other Laboratory Tests 11/05/24 03:44 Brief Hx & Hospital Course: 29-year-old male with no significant past medical history came in due to left- sided facial tingling. According to the patient, yesterday on 11/04/2024 while brushing his teeth in the morning he noticed some slight tingling in his left left cheek, when he spat the water out he felt like the left side of his face felt weird and "was not working properly". Patient denies having similar episodes in the past. On review of systems patient complains of rhinorrhea and a dry cough. Head CT, chest x-ray and MRI were unremarkable. On physical examination patient was noted to have facial asymmetry with drooping of the left side of the face, he was diagnosed with Hooper's palsy and started on prednisolone 60 mg for 10 days followed by a Medrol pack. Patient was also noted to have a blood glucose level of 178 and an Hb A1c of 10.2, patient was unaware and does not follow with a PCP. On the day of discharge, patient was instructed to follow up with his PCP and in the discharge clinic for further evaluation and management of his diabetes. Patient was sent home with valacyclovir 1 g t.i.d. for 7 days, prednisone 60 mg daily for 8 days, Solu-Medrol pack, Protonix 40 mg for 14 days and was instructed to use an eye patch on the left eye. His hospital course was uncomplicated. General Appearance: Cooperative. Well developed. Well nourished. NAD Head Exam: Facial asymmetry while smiling and frowning prominent on the left side. Increased lacrimation noted on the left side Neck Exam: Normal inspection. Non-tender. Normal alignment Pulmonary/Respiratory: Chest non-tender. Clear bilateral breath sounds, no crackles, no wheezing. Cardiovascular/Chest: Regular rate and rhythm. No murmurs. No JVD. Peripheral Pulses: 2+ Radial (R). 2+ Radial (L). 2+ Pedal (R). 2+ Pedal (L) Abdominal Exam: Normal bowel sounds. Soft. normal abdomen, no visible veins, Nontender. No hepatospenomegaly. No masses Ankle Exam: Negative ankle edema Lower extremities: Negative lower extremity edema Neuro/Mental Status: A&O x4. Coherent. Thoughts/Psych: Normal thought pattern. Appropriate mood and affect. Good judgement and insight Skin Exam: Normal inspection. Normal color. Warm. Dry Condition at Discharge: Good Final Diagnosis/Problems List Left-sided facial weakness, Hooper's palsy Obesity Newly diagnosed diabetes, likely type 2 Sleep-related breathing disorder Discharge Disposition: Home Discharge Instruct/Medications Diet: Consistent carbohydrate Activity: No Restrictions, As Tolerated Follow Up/Referral: Please follow up with PCP in the outpatient clinic for further workup for diabetes Please follow up and complete sleep study in the outpatient clinic Please follow in the discharge clinic within 1 week Medications: Valacyclovir 1000 mg 3 times a day for 7 days Prednisone 60 mg once daily for 8 days, FOLLOWED BY Medrol Dosepak Protonix 40 mg daily for 14 days Metformin 500 mg twice a day Discharge Statement: "Patient was advised to return to the ER or call 911 if any headaches, dizziness, shortness of breath, chest pain, abdominal pain, bleeding, fevers, or worsening of medical condition. Patient was counseled about treatment plan, medications, possible side effects, patientverbalized understanding. All questions were answered to the best of my ability. This discharge took greater then 30 minutes in planning, reviewing documentation, counseling the patient, and discussing with other team members." ASSESSMENT ASSESSMENT Assessment Left-sided facial weakness, Hooper's palsy Obesity Newly diagnosed diabetes, likely type 2 Sleep-related breathing disorder Date of Service: Nov 05, 2024 Billing Provider: TIMA LEIJA MD Common Visit Codes: 81001-FSQ/OBS DISCH DAY >30min Coding Comment Comment Attending Attestation I saw and evaluated the patient. I reviewed the residents note and agree with findings and plan as documented in the residents note except as documented below. SONY FINK RESIDENT Nov 05, 2024 18:24 TIMA LEIJA MD Nov 06, 2024 08:24
== END 2024-11-05 17:08 | disposition home or self-care (01) | DRG 48 ==
LOC: ER 07:48 → TELE 12:23 → ER 12:30 → UNDODISIN 11-05 16:22
PROVIDERS: ADMIT Student in an Organized Health Care Education/Training Program; ATTEND Student in an Organized Health Care Education/Training Program
DX: G51.0 Bell's palsy (principal); E11.65 Type 2 diabetes mellitus with hyperglycemia; E66.9 Obesity, unspecified; Z83.3 Family history of diabetes mellitus; Z82.49 Family history of ischemic heart disease and other diseases of the circulatory system; Z68.41 Body mass index [BMI] 40.0-44.9, adult
CPT/HCPCS: 36415; 70450; 70551; 71046; 80048; 80053; 80307; 81001; 82962; 83036; 84484; 85025; 93005; 99291; G0378

== ENCOUNTER 2025-01-20 02:23 | Emergency (ER) | payer MEDICAID ==
[~2025-01-20] VITALS: Ht 180.3 cm; Wt 125.1 kg
[~2025-01-20 02:23] MED LIST: METH4PAK PO; PANT40TA2 PO; PRED20TA2 PO; VALA1TAB PO
[2025-01-20 02:40] VITALS: BP 135/87; PULSE 87; RESP 14; O2SAT 97
[2025-01-20] MEDS ORDERED: AMOX875T4 PO (04:23)
[2025-01-20] MEDS ORDERED: IBUP-1456 PO (04:23)
--- NOTE | 2025-01-20 04:23 | ED.PDOC ---
Musculoskeletal HPI Comments 29-YEAR-OLD MALE PRESENTS TO ER FOR WOUND CHECK. PATIENT REPORTS THAT HE BITES HIS FINGERNAILS AND X FOUR DAYS HAS BEEN EXPERIENCING PAIN/SWELLING/REDNESS SURROUNDING NAILBED OF RIGHT 3RD FINGER AND PRESENTS TO ER TODAY FOR WOUND CHECK. REPORTS 8/10 TENDER PAIN LOCALIZED TO RIGHT 3RD FINGER. DENIES USE OF MEDICATIONS FOR CURRENT SYMPTOMS. PATIENT PRESENTS TO ER IN NO DISTRESS. DENIES SKIN DRAINAGE, NUMBNESS/TINGLING, INJURY OR ANY FURTHER SY MPTOMS/COMPLAINTS Chief Complaint: Upper Extremity Time Seen by MD: 03:06 Primary Care Provider: UNKNOWN Reviewed Notes: Nurses Notes, Medications, Allergies Allergies: Coded Allergies: NO KNOWN ALLERGIES (Unverified , 11/04/24) Home Meds Active Scripts Ibuprofen (Ibuprofen) 800 Mg Tab, 1 TAB PO TID PRN, #30 TAB 0 Refills Prov:GLEN FABIAN 01/20/25 Amoxicillin & Pot Clavulanate (Amoxicillin/Potassium Cla) 875 Mg Tab, 1 TAB PO BID for 7 Days, #14 TAB 0 Refills Prov:GLEN FABIAN 01/20/25 Pantoprazole Sodium Sesquihydr (Protonix) 40 Mg Tab, 40 MG PO DAILY for 14 Days, #14 TAB Prov:SONY FINK RESIDENT 11/05/24 Methylprednisolone (Medrol Dosepak) 4 Mg Kaiser, 4 MG PO UD, #21 TAB UAD Prov:SONY FINK RESIDENT 11/05/24 Prednisone (Prednisone) 20 Mg Tab, 60 MG PO DAILY for 8 Days, #30 MG Prov:SONY FINK RESIDENT 11/05/24 Valacyclovir Hcl (Valtrex) 1 Gm Tab, 1 TAB PO TID for 7 Days, #21 TAB Prov:SONY FINK RESIDENT 11/05/24 Information Source: Patient Mode of Arrival: Ambulatory Last Tetanus: UTD Past Medical History PAST MEDICAL HISTORY: Denies Surgical History: Denies all surgeries Family History Family History: Unknown Social History Smoker: Non-Smoker Alcohol: Denies ETOH Use Drugs: Denies Drug Use Lives In: Home Constitutional: denies: chills, diaphoresis, fatigue, fever, malaise, sweats, weakness, others EENTM: denies: blurred vision, double vision, ear bleeding, ear discharge, ear drainage, ear pain, ear ringing, eye pain, eye redness, hearing loss, mouth pain, mouth swelling, nasal discharge, nose bleeding, nose congestion, nose pain, photophobia, tearing, throat pain, throat swelling, voice changes, others Respiratory: denies: cough, hemoptysis, orthopnea, SOB at rest, shortness of breath, SOB with excertion, stridor, wheezing, others Cardiovascular: denies: chest pain, dizzy spells, diaphoresis, Dyspnea on exertion, edema, irregular heart beat, left arm pain, lightheadedness, palpitations, PND, syncope, others Gastrointestinal: denies: abdomen distended, abdominal pain, blood streaked bowels, constipated, diarrhea, dysphagia, difficulty swallowing, hematemesis, melena, nausea, poor appetite, poor fluid intake, rectal bleeding, rectal pain, vomiting, others Genitourinary: denies: burning, dysuria, flank pain, frequency, hematuria, incontinence, penile discharge, penile sore, pain, testicle pain, testicle swelling, urgency, others Neurological: denies: dizziness, fainting, headache, left sided numbness, left sided weakness, numbness, paresthesia, pre-existing deficit, right sided numbne ss, right sided weakness, seizure, speech problems, tingling, tremors, weakness, others Musculoskeletal: denies: back pain, gout, joint pain, joint swelling, muscle pain, muscle stiffness, neck pain, others Integumetry: reports: others ( STATED IN HPI) Allergic/Immunocompromised: denies: Difficulty Healing, Frequent Infections, Hives, Itching, others Hematologic/Lymphatic: denies: anemia, blood clots, easy bleeding, easy bruising, swollen glands, others Endocrine: denies: excessive hunger, excessive sweating, excessive thirst, excessive urination, flushing, intolerance to cold, intolerance to heat, unexplained weight gain, unexplained weight loss, others Psychiatric: denies: anxiety, bipolar disorder, depression, hopeless, panic di sorder, schizophrenia, sleepless, suicidal, others Physical Exam General Appearance: No Apparent Distress HEENT: PERRL/EOMI Neck: Full Range of Motion, Non-Tender, Normal Respiratory: Chest Non-Tender, Lungs Clear, No Accessory Muscle Use, No Respiratory Distress, Normal Breath Sounds Cardiovascular: No Murmur, No Gallop, Regular Rate/Rhythm Breast Exam: Deferred Gastrointestinal: NOT DONE Genitalia: Deferred Pelvic: Deferred Rectal: Deferred Extremities: Normal capillary refill, Normal range of motion Neurologic: Alert, No Motor Deficits, Normal Affect, Normal Mood, No Sensory Deficits Cerebellar Function: Normal Reflexes: Normal Skin: Dry, Warm, Other (MILD SWELLING/ERYTHEMA/TTP NOTED SURROUNDING NAILBED OF RIGHT 3RD FINGER. NO FLUCTUANCE/DRAINAGE/FURTHER SKIN CHANGES NOTED. PATIENT ABLE TO FULLY MOVE ALL FINGERS RIGHT HAND. PULSES INTACT) Peripheral Pulses: 2+ Radial (R), 2+ Radial (L), 2+ Brachial (R), 2+ Brachial (L) Lymphatic: No Adenopathy Was a procedure done? Was a procedure done?: No Sedation Sedation?: No Differential Diagnosis EXT Differential Diagnosis: Cellulitis, Fracture, Dislocation, Neurovascular injury X-Ray, Labs, Meds, VS Vital Signs Date Time Temp Pulse Resp B/P (MAP) Pulse Ox O2 Delivery O2 Flow Rate FiO2 01/20/25 02:40 97.9 87 14 135/87 (103) 97 IBUPROFEN 800 MG P.O. ORDERED ADVISED ON IMPORTANCE OF NO NAILBED NOTING WARM SOAKS AND ELEVATION DISCUSSED AND ADVISED ADVISED TO FOLLOW UP WITH PCP IN 1-2 DAYS PATIENT VERBALIZED UNDERSTANDING AND AGREEABLE WITH CURRENT PLAN OF CARE ADVISED TO RETURN TO ER IMMEDIATELY IF SYMPTOMS WORSEN Time of 1ST Reevaluation: 04:02 Reevaluation 1ST: N/A Patient Education/Counseling: Diagnosis, Treatment, Prognosis, Need For Follow Up Family Education/Counseling: No Family Present Departure 1 Departure Time of Disposition: 04:22 Impression: Primary Impression: Paronychia Disposition: 01 HOME / SELF CARE / HOMELESS Condition: Stable e-Prescriptions Ibuprofen (Ibuprofen) 800 Mg Tab 1 TAB PO TID PRN, #30 TAB 0 Refills Prov: GLEN FABIAN 01/20/25 Amoxicillin & Pot Clavulanate (Amoxicillin/Potassium Cla) 875 Mg Tab 1 TAB PO BID for 7 Days, #14 TAB 0 Refills Prov: GLEN FABIAN 01/20/25 Discharged With: Self Critical Care Note Critical Care Time?: No Stability Stability form required: No Heart Score Heart Score: Heart Score Response (Comments) Value History N/A 0 EKG N/A 0 Age N/A 0 Risk Factors N/A 0 Troponin N/A 0 Total 0 GLEN FABIAN Jan 20, 2025 04:23
[2025-01-20] MEDS: IBUPROFEN 800 MG TAB PO ONE (04:32)
== END 2025-01-20 04:33 | disposition home or self-care (01) ==
LOC: ER 02:23
DX: L03.011 Cellulitis of right finger (principal); Z79.899 Other long term (current) drug therapy; Z79.624 Long term (current) use of inhibitors of nucleotide synthesis; Z79.52 Long term (current) use of systemic steroids